=== PATIENT | male | born 1970 | race Caucasian/White ===

== ENCOUNTER 2019-09-22 20:51 | Inpatient (IN) | payer MEDICAID ==
[~2019-09-22] VITALS: Ht 185.4 cm; Wt 68.0 kg
[2019-09-22] MEDS ORDERED: ACET-66 PO (21:13)
[2019-09-22] MEDS ORDERED: IBUP-2271 PO (21:13)
[2019-09-22] MEDS ORDERED: MIRT-92 PO (21:13)
[2019-09-22] MEDS ORDERED: MULT-12 PO (21:13)
[2019-09-22] MEDS ORDERED: BUSP15 PO (21:13)
[2019-09-22] MEDS ORDERED: ARIP5TAB8 PO (21:13)
[2019-09-22] MEDS ORDERED: TRAZ-257 PO (21:13)
[2019-09-22 21:22] LABS: BASOPHILS % (AUTO) 0.3 % (0.0-2.0); EOSINOPHILS % (AUTO) 0.2 % (1.0-6.0); HEMATOCRIT 41.7 % (41-53); HEMOGLOBIN 14.4 g/dL (13.5-17.5); LYMPHOCYTES # (AUTO) 0.6 K/uL (1.0-4.8); LYMPHOCYTES % (AUTO) 3.6 % (22.0-44.0); MEAN CORPUSCULAR HEMOGLOBIN 30.6 pg (26.0-34.0); MEAN CORPUSCULAR HGB CONC 34.5 G/dL (31.0-37.0); MEAN CORPUSCULAR VOLUME 89 fL (80-100); MONOCYTES # (AUTO) 0.7 K/uL (0.1-1.0); MONOCYTES % (AUTO) 4.8 % (2.0-9.0); NEUTROPHILS # (AUTO) 14.1 K/uL (1.8-7.7); PLATELET COUNT (AUTO) 261 K/uL (150-450); RED BLOOD CELL COUNT(AUTO) 4.71 MIL/uL (4.50-5.90); RED CELL DISTRIBUTION WIDTH 13.4 % (11.5-14.5)
[2019-09-22 21:24] LABS: NEUTROPHILS % (AUTO) 91.1 % (40.0-70.0)
[2019-09-22 21:31] LABS: ANION GAP 12 mmol/L (8-16); CALCIUM, TOTAL 8.8 mg/dL (8.8-10.5); CARBON DIOXIDE 26 mmol/L (22-29); CHLORIDE 107 mmol/L (98-107); CREATININE 1.01 mg/dL (0.60-1.30); GLOMERULAR FILTR. RATE CALC > 60 mL/min (>60); GLUCOSE,RANDOM 127 mg/dL (70-110); POTASSIUM 3.5 mmol/L (3.5-5.1); SODIUM SERUM 145 mmol/L (136-145); UREA NITROGEN, BLOOD 16 mg/dL (7-18)
[2019-09-22 21:36] LABS: ALANINE AMINOTRANSFERASE 17 U/L (12-78); ALBUMIN 4.6 g/dL (3.4-5.0); ALKALINE PHOSPHATASE 67 U/L (46-116); ASPARTATE AMINOTRANSFERASE 14 U/L (15-37); BILIRUBIN,TOTAL 0.6 mg/dL (0.1-1.0); TOTAL PROTEIN, SERUM 7.5 g/dL (6.4-8.2)
[2019-09-22 21:53] LABS: SALICYLATE < 2.8 mg/dL (2.8-20.0)
[2019-09-22 22:43] LABS: ACETAMINOPHEN < 2 mcg/mL (10-30)
[2019-09-23] MEDS ORDERED: LORazepam 2 MG TABLET PO PRN (01:00)
[2019-09-23] MEDS ORDERED: OLANZapine 5 MG RAPDIS TABLET PO PRN ×2 (01:00→13:45)
[2019-09-23] MEDS ORDERED: ZOLPIDEM TARTRATE 10 MG TABLET PO PRN (01:00)
[2019-09-23 09:33] VITALS: BP 144/72
[2019-09-23] MEDS ORDERED: PROMETHAZINE HCL 25 MG TABLET PO PRN (13:45)
[2019-09-23] MEDS ORDERED: MAGNESIUM HYDROXIDE SUSPENSION 30 ML UDCUP PO PRN (13:45)
[2019-09-23] MEDS ORDERED: HydrOXYzine PAMOATE 50 MG CAPSULE PO PRN (13:45)
[2019-09-23] MEDS ORDERED: LOPERAMIDE HCL 2 MG CAPSULE PO PRN (13:45)
[2019-09-23] MEDS ORDERED: TUBERCULIN, PURIFIED PROTEIN DERIVATIVE 5 TU/0.1 ML SYRINGE ID ONE (13:45)
[2019-09-23] MEDS ORDERED: GuaiFENesin/D-METHORPHAN [SUGAR-FREE] 200-20MG/10 ML SYRUP UDCUP PO PRN (13:45)
[2019-09-23] MEDS ORDERED: MAG HYDROX/AL HYDROX/SIMETH ES 30 ML SUSPENSION UDCUP PO PRN (13:45)
[2019-09-23] MEDS ORDERED: ACETAMINOPHEN 325 MG TABLET PO PRN (13:45)
[2019-09-23 16:33] VITALS: BP 105/64
[2019-09-23] MEDS ORDERED: BusPIRone HCL 15 MG TABLET PO SCH (17:00)
[2019-09-23] MEDS: THIAMINE HCL 100 MG TABLET PO SCH (17:15)
[2019-09-23] MEDS: OLANZapine 5 MG RAPDIS TABLET PO SCH (20:17)
[2019-09-23] MEDS ORDERED: TraZODone HCL 100 MG TABLET PO SCH (21:00)
[2019-09-23] MEDS ORDERED: MIRTAZAPINE 15 MG TABLET PO SCH (21:00)
[2019-09-24] MEDS ORDERED: INFLUENZA VIRUS VACCINE QVS 2019-20 (3YR+)/PF 60 MCG/0.5 ML SYRINGE IM ONE (05:00)
[2019-09-24 06:38] VITALS: BP 104/63
[2019-09-24 07:27] LABS: BASOPHILS % (AUTO) 0.4 % (0.0-2.0); EOSINOPHILS % (AUTO) 2.3 % (1.0-6.0); HEMATOCRIT 41.3 % (41-53); HEMOGLOBIN 14.2 g/dL (13.5-17.5); LYMPHOCYTES # (AUTO) 3.3 K/uL (1.0-4.8); LYMPHOCYTES % (AUTO) 33.7 % (22.0-44.0); MEAN CORPUSCULAR HEMOGLOBIN 30.8 pg (26.0-34.0); MEAN CORPUSCULAR HGB CONC 34.3 G/dL (31.0-37.0); MEAN CORPUSCULAR VOLUME 90 fL (80-100); MONOCYTES # (AUTO) 0.8 K/uL (0.1-1.0); MONOCYTES % (AUTO) 8.4 % (2.0-9.0); NEUTROPHILS # (AUTO) 5.4 K/uL (1.8-7.7); NEUTROPHILS % (AUTO) 55.2 % (40.0-70.0); PLATELET COUNT (AUTO) 241 K/uL (150-450); RED CELL DISTRIBUTION WIDTH 13.4 % (11.5-14.5)
[2019-09-24 07:45] LABS: ALANINE AMINOTRANSFERASE 13 U/L (12-78); ALKALINE PHOSPHATASE 59 U/L (46-116); ANION GAP 7 mmol/L (8-16); ASPARTATE AMINOTRANSFERASE 20 U/L (15-37); BILIRUBIN,TOTAL 0.8 mg/dL (0.1-1.0); CALCIUM, TOTAL 8.8 mg/dL (8.8-10.5); CARBON DIOXIDE 29 mmol/L (22-29); CHLORIDE 108 mmol/L (98-107); CHOL/HDL RATIO 2.5 (4.2-7.3); CHOLESTEROL 146 mg/dL (131-200); CREATININE 1.19 mg/dL (0.60-1.30); GLOMERULAR FILTR. RATE CALC > 60 mL/min (>60); GLUCOSE,RANDOM 87 mg/dL (70-110); HDL CHOLESTEROL 58 mg/dL (40-60); LDL CHOL (CALC.) 79 mg/dL (0-130); POTASSIUM 4.1 mmol/L (3.5-5.1); SODIUM SERUM 144 mmol/L (136-145); THYROID STIMULATING HORMONE 0.92 uIU/mL (0.36-3.74); TOTAL PROTEIN, SERUM 6.6 g/dL (6.4-8.2); TRIGLYCERIDES 44 mg/dL (15-150); UREA NITROGEN, BLOOD 22 mg/dL (7-18)
[2019-09-24] MEDS: THIAMINE HCL 100 MG TABLET PO SCH ×2 (08:30→16:11)
[2019-09-24] MEDS: FOLIC ACID 1 MG TABLET PO SCH (08:30)
[2019-09-24] MEDS: MULTIVITAMINS WITH MINERALS, THERAPEUTIC TABLET PO SCH (08:30)
[2019-09-24 08:38] VITALS: BP 115/64
[2019-09-24] MEDS ORDERED: ESCITALOPRAM OXALATE 10 MG TABLET PO SCH (09:00)
[2019-09-24] MEDS ORDERED: ARIPiprazole 5 MG TABLET PO SCH (09:00)
[2019-09-24 16:07] VITALS: BP 106/63
[2019-09-24] MEDS: OLANZapine 5 MG RAPDIS TABLET PO SCH (20:38)
[2019-09-25 04:46] VITALS: BP 103/63
[2019-09-25] MEDS: THIAMINE HCL 100 MG TABLET PO SCH ×2 (08:41→16:39)
[2019-09-25] MEDS: MULTIVITAMINS WITH MINERALS, THERAPEUTIC TABLET PO SCH (08:41)
[2019-09-25] MEDS: FOLIC ACID 1 MG TABLET PO SCH (08:41)
[2019-09-25 08:44] VITALS: BP 110/70
[2019-09-25] MEDS ORDERED: ESCITALOPRAM OXALATE 10 MG TABLET PO SCH (09:00)
[2019-09-25 16:12] VITALS: BP 117/68
[2019-09-25] MEDS ORDERED: OLANZapine 10 MG RAPDIS TABLET PO SCH (21:00)
[2019-09-26 00:04] VITALS: BP 118/70
[2019-09-26] MEDS: THIAMINE HCL 100 MG TABLET PO SCH ×2 (08:29→16:25)
[2019-09-26] MEDS: MULTIVITAMINS WITH MINERALS, THERAPEUTIC TABLET PO SCH (08:29)
[2019-09-26] MEDS: FOLIC ACID 1 MG TABLET PO SCH (08:29)
[2019-09-26 08:40] VITALS: BP 107/64
[2019-09-26] MEDS ORDERED: ESCITALOPRAM OXALATE 10 MG TABLET PO SCH (09:00)
[2019-09-26 15:40] VITALS: BP 123/65
[2019-09-26] MEDS ORDERED: OLAN10TA22 PO (16:07)
[2019-09-26] MEDS ORDERED: ESCI10TA61 PO (16:07)
[2019-09-26] MEDS ORDERED: NALT50TA PO (16:07)
[2019-09-26 19:26] VITALS: BP 123/65
== END 2019-09-26 19:10 | disposition home or self-care (01) | DRG 750 ==
LOC: EMS 20:56 → B2S 09-23 06:28
PROVIDERS: ADMIT Psychiatry & Neurology Psychiatry; ATTEND Psychiatry & Neurology Psychiatry
DX: F25.9 Schizoaffective disorder, unspecified (principal); E86.0 Dehydration; F32.9 Major depressive disorder, single episode, unspecified; R73.9 Hyperglycemia, unspecified; T43.211A Poisoning by selective serotonin and norepinephrine reuptake inhibitors, accidental (unintentional), initial encounter; Y92.89 Other specified places as the place of occurrence of the external cause; Z59.9 Problem related to housing and economic circumstances, unspecified; Z63.9 Problem related to primary support group, unspecified; Z88.2 Allergy status to sulfonamides; Z65.3 Problems related to other legal circumstances; Z23 Encounter for immunization
CPT/HCPCS: 83036; 84439; 84443; 86592; 90686; 93005; G0480; G0481